=== PATIENT | female | born 1990 | race Caucasian/White ===

== ENCOUNTER 2023-08-02 18:52 | Emergency (ER) | payer MEDICAID ==
[~2023-08-02] VITALS: Ht 167.6 cm; Wt 67.0 kg
[2023-08-02 19:02] VITALS: BP 115/76; PULSE 88; RESP 20; TEMP 98.3; O2SAT 100
[2023-08-02] MEDS ORDERED: KETOROLAC 30MG/ML VIAL IM ONE (20:30)
[2023-08-02] MEDS ORDERED: BENZ100C86 MT (22:54)
== END 2023-08-03 00:25 | disposition home or self-care (01) ==
LOC: ER 18:52
DX: J06.9 Acute upper respiratory infection, unspecified (principal); R05.9 Cough, unspecified
CPT/HCPCS: 99283; 71045; 93005; 96372; J1885